=== PATIENT | male | born 1995 | race Caucasian/White ===

== ENCOUNTER 2021-09-02 15:23 | Emergency (ER) | payer OTHER ==
[~2021-09-02] VITALS: Ht 180.3 cm; Wt 88.0 kg
[~2021-09-02 15:23] MED LIST: LORA10TA19 PO
[2021-09-02 15:32] VITALS: BP 131/67
--- NOTE | 2021-09-02 16:51 | NUR ---
JOVANA JONES EXAMINING PT
--- NOTE | 2021-09-02 17:27 | NUR ---
LEFT EAR IRRIGATED W/ SALINA AND HYDROGEN PEROXIDE. PA NOTIFIED
[2021-09-02 17:32] VITALS: BP 131/67
--- NOTE | 2021-09-02 17:32 | NUR ---
Patient discharged with v/s stable. Written and verbal after care instructions given and explained. Patient alert, oriented and verbalized understanding of instructions. Ambulatory with steady gait. All questions addressed prior to discharge. ID band removed. Patient advised to follow up with PMD. School note provided. Opportunity to ask questions provided and answered.
== END 2021-09-02 17:32 | disposition home or self-care (01) ==
LOC: MED 15:23
DX: T16.2XXA Foreign body in left ear, initial encounter (principal); F17.200 Nicotine dependence, unspecified, uncomplicated; Z79.899 Other long term (current) drug therapy; X58.XXXA Exposure to other specified factors, initial encounter; Y93.89 Activity, other specified; Y92.89 Other specified places as the place of occurrence of the external cause; Y99.8 Other external cause status
CPT/HCPCS: 69200; 99284